=== PATIENT | male | born 1995 | race Caucasian/White ===

== ENCOUNTER 2017-09-10 03:22 | Emergency (ER) | payer OTHER ==
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
[2017-09-10 03:47] VITALS: BP 118/64
== END 2017-09-10 04:28 | disposition home or self-care (01) ==
LOC: ER 03:22
DX: Z71.1 Person with feared health complaint in whom no diagnosis is made (principal); V89.2XXA Person injured in unspecified motor-vehicle accident, traffic, initial encounter
CPT/HCPCS: 99284